=== PATIENT | male | born 1950 | race American Indian/Alaskan Native ===

== ENCOUNTER 2018-08-19 09:45 | Outpatient (CLI) | payer MEDICARE ==
--- NOTE | 2018-08-19 10:55 | XRay Report ---
CHEST XRAY, 2 VIEWS: History: Chest pain. Findings: There is mild cardiomegaly. Pulmonary vessels are within normal limits. The lungs are clear and fully expanded. No infiltrate, pleural effusion or pneumothorax. No displaced bony fracture. IMPRESSION: Mild cardiomegaly.
== END 2018-08-19 09:46 | disposition home or self-care (01) ==
LOC: CARD 09:45
PROVIDERS: ATTEND Internal Medicine
DX: I11.9 Hypertensive heart disease without heart failure (principal); E11.9 Type 2 diabetes mellitus without complications; Z86.73 Personal history of transient ischemic attack (TIA), and cerebral infarction without residual deficits
CPT/HCPCS: 71046; 93005; 93010

== ENCOUNTER 2018-12-09 21:39 | Emergency (ER) | payer MEDICARE ==
[2018-12-10 02:45] LABS: Bilirubin,Urine NEG (Negative); Blood,Urine LG (Negative); Color,Urine Yellow (Yellow); Mucus,Urine FEW /HPF; Urobilinogen,Urine < 2.0 mg/dL (<2.0)
[2018-12-10 02:46] LABS: RBC,Urine > 182.0 /HPF (0.0-6.0)
[2018-12-10 04:36] VITALS: BP 185/74
== END 2018-12-10 14:42 | disposition left against medical advice (07) ==
LOC: ED 21:39
DX: N42.89 Other specified disorders of prostate (principal); Z53.21 Procedure and treatment not carried out due to patient leaving prior to being seen by health care provider
CPT/HCPCS: 81001

== ENCOUNTER 2019-08-27 12:30 | Day surgery (SDC) | payer MEDICARE ==
--- NOTE | 2019-08-27 13:45 | Anesthesia Consultation ---
Anesthesia Consult and Med Hx Date of service: 08/27/19 - Airway Anesthetic Teeth Evaluation: Partials ROM Head & Neck: Adequate Mental/Hyoid Distance: Adequate Mallampati Class: Class II Intubation Access Assessment: Probably Good - Pulmonary Exam CTA: Yes - Cardiac Exam Cardiac Exam: RRR - Pre-Operative Health Status ASA Pre-Surgery Classification: ASA3 Proposed Anesthetic Plan: General - Pre-Anesthesia Comment Pre-Anesthesia Comments: Upper and lower partials. - Pulmonary Hx Smoking: No Hx Sleep Apnea: No (KIRAN PRE SCREEN HIGH RISK) - Cardiovascular System Hx Hypertension: No (Has taken meds for Htn in past) Hx Heart Attack/AMI: No (H/O atypical C.P. Several prior stress tests were neg. ) Hx Heart Murmur: No - Central Nervous System Hx Back Pain: Yes (LOWER) Hx Psychiatric Problems: No - Endocrine Hx Non-Insulin Dependent Diabetes: Yes (metformin) - Other Systems Hx Alcohol Use: Yes (RARE- WINE, WHISKEY) Hx Substance Use: No Hx Cancer: No - Additional Comments Anesthesia Medical History Comments: Hypercholesterolemia
[2019-08-27] MEDS ORDERED: ONDANSETRON 4 MG/2 ML INJ IV PRN (13:47)
[2019-08-27] MEDS ORDERED: HYDROcodone/ACETAMINOPHEN 5-325 MG TAB PO PRN (13:47)
[2019-08-27] MEDS ORDERED: HYDROmorphone 1 MG/1 ML INJ IV PRN (13:47)
--- NOTE | 2019-08-27 13:47 | Anesthesia Day of Surgery ---
Anesthesia Day of Surgery - Day of Surgery Patient Examined: Yes Patient H&P Reviewed: Yes Patient is NPO: Yes
[2019-08-27] MEDS ORDERED: FAMOTIDINE 20 MG TAB PO NR (14:00)
[2019-08-27] MEDS ORDERED: SODIUM CHLORIDE 0.9% 1000 ML 1,000 ML IV SCH (14:00)
[2019-08-27] MEDS ORDERED: MIDAZOLAM 2 MG/2 ML INJ IV NR (14:00)
[2019-08-27 14:45] VITALS: BP 166/74
--- NOTE | 2019-08-27 15:17 | Progress Note ---
Subjective Date of service: 08/27/19 Principal diagnosis: stricture Interval history: [facility] cancelled because no ride home pt was aware prior had to cancel i explained to him i asked for risk management offered to admit as well told no Objective - Constitutional Vitals: Vital Signs - 12hr 08/27/19 08/27/19 13:10 14:24 Temperature 98 F 98 F Pulse Rate 52 L 52 L Respiratory 18 18 Rate Blood Pressure 166/74 166/74 O2 Sat by Pulse 98 98 Oximetry Medications & Allergies - Medications Allergies/Adverse Reactions: Allergies No Known Allergies Allergy (Verified 12/09/18 22:14) Home Medications: Home Medications Medication Instructions Recorded Confirmed Last Taken Type Aleve 1 PO PRN 08/18/19 08/11/19 History Aspirin 81 mg PO DAILY 08/18/19 08/18/19 Unknown History Simvastatin 10 mg PO DAILY 08/18/19 08/18/19 Unknown History metFORMIN 1,000 mg PO BID 08/18/19 08/18/19 Unknown History Active Medications: Generic Name Dose Route Start Last Admin Trade Name [place] PRN Reason Stop Dose Admin Acetaminophen/Hydrocodone Bitart 2 each 08/27/19 13:47 [place] 5/325 PO ONCE PRN Pain, Moderate (4-6) Famotidine 20 mg 08/27/19 14:00 Pepcid PO 08/27/19 23:59 PREOP NR Hydromorphone HCl 0.25 mg 08/27/19 13:47 Dilaudid IV Q10MIN PRN Pain, Moderate (4-6) Sodium Chloride 1,000 mls @ 100 mls/hr 08/27/19 14:00 Nacl 0.9% 1000 Ml IV DIRECT HÉCTOR Midazolam HCl 2 mg 08/27/19 14:00 Versed IV 08/27/19 23:59 PREOP NR Ondansetron HCl 4 mg 08/27/19 13:47 Zofran IV ONCE PRN Nausea And Vomiting
== END 2019-08-27 12:31 | disposition home or self-care (01) ==
LOC: OR 12:30
PROVIDERS: ATTEND Urology
DX: N35.011 Post-traumatic bulbous urethral stricture (principal); E78.00 Pure hypercholesterolemia, unspecified; K21.9 Gastro-esophageal reflux disease without esophagitis; M19.90 Unspecified osteoarthritis, unspecified site; E11.9 Type 2 diabetes mellitus without complications; Z53.8 Procedure and treatment not carried out for other reasons; Z79.899 Other long term (current) drug therapy; Z79.82 Long term (current) use of aspirin; Z79.84 Long term (current) use of oral hypoglycemic drugs; Z98.41 Cataract extraction status, right eye; Z98.42 Cataract extraction status, left eye; Z72.89 Other problems related to lifestyle; Z98.890 Other specified postprocedural states; Z86.2 Personal history of diseases of the blood and blood-forming organs and certain disorders involving the immune mechanism
CPT/HCPCS: 82962; J7030

== ENCOUNTER 2019-10-01 14:30 | Day surgery (SDC) | payer MEDICARE ==
--- NOTE | 2019-10-01 14:53 | Anesthesia Day of Surgery ---
Anesthesia Day of Surgery - Day of Surgery Patient Examined: Yes Patient H&P Reviewed: Yes Patient is NPO: Yes
[2019-10-01] MEDS ORDERED: fentaNYL 100 MCG/2 ML INJ IV PRN (15:00)
[2019-10-01] MEDS ORDERED: ONDANSETRON 4 MG/2 ML INJ IV PRN (15:00)
[2019-10-01] MEDS ORDERED: LACTATED RINGERS 1,000 ML IV SCH (15:00)
[2019-10-01] MEDS ORDERED: ceFAZolin/Water 2 GM/20 ML 2 GM/20 ML SYRINGE IV NR (15:00)
[2019-10-01] MEDS ORDERED: propofoL 200 MG/20 ML VIAL IV ONE (15:03)
[2019-10-01] MEDS ORDERED: fentaNYL 100 MCG/2 ML INJ ONE (15:04)
[2019-10-01] MEDS ORDERED: LIDOCAINE MPF (2%) 20 MG/1 ML VIAL 5 ML ONE (15:04)
--- NOTE | 2019-10-01 15:18 | Post Operative Note ---
Date of procedure: 10/01/19 Pre-op diagnosis: stricture Findings: as above Procedure: cysto dviu Anesthesia: GETA Surgeon: RUPAL COOK Estimated blood loss: minimal Pathology: none Condition: stable Disposition: PACU
--- NOTE | 2019-10-01 15:20 | Discharge Summary ---
Short Stay Discharge Plan Activity: other (no staining ) Weight Bearing Status: Full Weight Bearing Diet: low fat, low cholesterol, low salt, diabetic Special Instructions: other (inc fluids ) Durable Medical Equipment Needed Upon Discharge: other (rosado care ) Follow up with: DOM ALLEN MD [Primary Care Provider] - 7 Days
[2019-10-01] MEDS ORDERED: WATER FOR IRRIG STERILE 2000 ML IR ONE (16:10)
--- NOTE | 2019-10-01 16:23 | Operative Report ---
PREOPERATIVE DIAGNOSES: History of previous stricture and narrowing and obstruction. POSTOPERATIVE DIAGNOSES: History of previous stricture and narrowing and obstruction. Previous TURP, slight narrowing at the membranous junction. PROCEDURE: Cystoscopy, DVIU. SURGEON: Dr. Odom. ANESTHESIA: General. FINDINGS: This is a gentleman who has had previous urological surgery. Complains of sprayed flow. He now presents for cystoscopy. DESCRIPTION OF PROCEDURE: The patient was brought to the operating room and laid on the operating table. Following induction of anesthesia, placed in lithotomy position, prepped and draped in usual sterile fashion. Cystourethroscopy showed a little narrowing at the membranous junction, which was minimally incised. The bladder neck was wide open. There was regrowth of prostate on the right lobe, but it did not appear to be obstructing. The prostatic urethra was wide open distal to the little apical tissue and the bladder was not trabeculated. The patient tolerated the procedure well. No biopsies were done. No retrogrades needed to be done. A 20 coude was placed. She was brought to recovery in stable condition. JOB# [id number] MICHELLE/CLEMENTE
--- NOTE | 2019-10-01 16:43 | Post Anesthesia Evaluation ---
- Post Anesthesia Evaluation Patient Participated: Yes Airway Patent: Yes Stable Respiratory Function: Yes Nausea/Vomiting: No Temp > 96.8F: Yes Pain Manageable: Yes Adequeate Hydration: Yes Anesthesia Complications: No Block Receding Appropriately: Not Applicable Patient on Ventilator: No
[2019-10-01] MEDS ORDERED: hydrALAZINE 20 MG/1 ML INJ ONE (16:49)
[2019-10-01] MEDS ORDERED: hydrALAZINE 20 MG/1 ML INJ IV ONE (16:51)
--- NOTE | 2019-10-01 17:15 | XRay Report ---
Single fluoroscopic image submitted Indication: Intraoperative localization Impression: A single image of the abdomen was submitted for documentation purposes with radiology in volvement. Imaging guidance performed for evaluation of a urethral stricture. No contrast was inject ed. Please refer to the operative note for complete details. Fluoroscopic time: 3 seconds Number of fluoroscopic images: 1 Signer Name: Amando Prakash MD Signed: 10/01/2019 5:11 PM Workstation Name: [id number]
[2019-10-01 17:18] VITALS: BP 157/98
[2019-10-01] MEDS ORDERED: HYDROcodone/ACETAMINOPHEN 5-325 MG TAB PO PRN (17:59)
== END 2019-10-01 18:30 | disposition home or self-care (01) ==
LOC: OR 14:30
PROVIDERS: ATTEND Urology
DX: N35.011 Post-traumatic bulbous urethral stricture (principal); E78.00 Pure hypercholesterolemia, unspecified; K21.9 Gastro-esophageal reflux disease without esophagitis; M19.90 Unspecified osteoarthritis, unspecified site; E11.9 Type 2 diabetes mellitus without complications; Z72.89 Other problems related to lifestyle; Z98.890 Other specified postprocedural states; Z79.899 Other long term (current) drug therapy; Z79.84 Long term (current) use of oral hypoglycemic drugs; Z79.82 Long term (current) use of aspirin; Z98.41 Cataract extraction status, right eye; Z98.42 Cataract extraction status, left eye
CPT/HCPCS: 52276; 74018; 82962; A4217; J0360; J0690; J2704; J3010; J7120

== ENCOUNTER 2021-04-12 07:08 | Day surgery (SDC) | payer MEDICARE ==
[2021-04-12] MEDS ORDERED: SODIUM CHLORIDE 0.9% 500 ML 500 ML IV SCH (08:00)
[2021-04-12 08:12] LABS: Basophils % (Auto) 0.7 % (0.0-1.8); Eosinophils # (Auto) 0.1 K/mm3 (0.0-0.4); Hematocrit 39.9 % (35.5-45.6); Hemoglobin 13.5 gm/dl (11.8-15.2); Lymphocytes # (Auto) 1.3 K/mm3 (1.2-5.4); Lymphocytes % (Auto) 42.8 % (13.4-35.0); Mean Corpuscular HGB Conc 34 % (32-34); Mean Corpuscular Volume 80 fl (84-94); Monocytes # (Auto) 0.3 K/mm3 (0.0-0.8); Monocytes % (Auto) 10.8 % (0.0-7.3); Platelet Count 152 K/mm3 (140-440); Red Cell Distribution Width 15.1 % (13.2-15.2)
[2021-04-12 08:24] LABS: BUN/Creatinine Ratio 15; Blood Urea Nitrogen 15 mg/dL (9-20); Calcium 9.3 mg/dL (8.4-10.2); Hemolysis Index 8
[2021-04-12 08:25] VITALS: BP 147/82
[2021-04-12] MEDS ORDERED: MIDAZOLAM 2 MG/2 ML INJ ONE (08:32)
[2021-04-12] MEDS ORDERED: fentaNYL 100 MCG/2 ML INJ ONE (08:33)
[2021-04-12] MEDS ORDERED: LIDOCAINE (2%) 20 MG/1 ML VIAL 20 ML MDV INFILTRATI ONE (08:34)
[2021-04-12] MEDS ORDERED: HEPARIN/NS 5000 UNIT/500ML 1,000 ML IR ONE (08:34)
[2021-04-12] MEDS ORDERED: HEPARIN 10,000 UNITS/10 ML VIAL ONE (08:34)
[2021-04-12] MEDS ORDERED: NITROGLYCERIN SYRINGE 3 ML ONE (08:35)
[2021-04-12 08:51] LABS: INR 1.14 (0.87-1.13)
[2021-04-12] MEDS ORDERED: ASPIRIN 81 MG TAB CHEW PO SCH (10:00)
== END 2021-04-12 08:50 | disposition home or self-care (01) ==
LOC: CATHLABREC 07:08
PROVIDERS: ATTEND Internal Medicine
DX: R94.39 Abnormal result of other cardiovascular function study (principal); Z53.8 Procedure and treatment not carried out for other reasons; I10 Essential (primary) hypertension; E11.9 Type 2 diabetes mellitus without complications; E78.00 Pure hypercholesterolemia, unspecified; K21.9 Gastro-esophageal reflux disease without esophagitis; N40.0 Benign prostatic hyperplasia without lower urinary tract symptoms; M19.90 Unspecified osteoarthritis, unspecified site; Z86.711 Personal history of pulmonary embolism; Z79.82 Long term (current) use of aspirin; Z79.84 Long term (current) use of oral hypoglycemic drugs; Z79.899 Other long term (current) drug therapy; Z98.890 Other specified postprocedural states
CPT/HCPCS: 36415; 80048; 85025; 85610; 85730; 93005; J1644; J2250; J3010; J7040

== ENCOUNTER 2021-04-21 06:43 | Day surgery (SDC) | payer MEDICARE ==
[2021-04-21] MEDS ORDERED: SODIUM CHLORIDE 0.9% 500 ML 500 ML IV SCH (09:00)
[2021-04-21 09:24] LABS: Basophils % (Auto) 1.1 % (0.0-1.8); Eosinophils # (Auto) 0.1 K/mm3 (0.0-0.4); Eosinophils % (Auto) 2.6 % (0.0-4.3); Hematocrit 41.8 % (35.5-45.6); Hemoglobin 14.1 gm/dl (11.8-15.2); Lymphocytes # (Auto) 1.6 K/mm3 (1.2-5.4); Lymphocytes % (Auto) 42.4 % (13.4-35.0); Mean Corpuscular HGB Conc 34 % (32-34); Mean Corpuscular Volume 80 fl (84-94); Monocytes # (Auto) 0.3 K/mm3 (0.0-0.8); Monocytes % (Auto) 7.9 % (0.0-7.3); Platelet Count 148 K/mm3 (140-440); Red Blood Count 5.21 M/mm3 (3.65-5.03); Red Cell Distribution Width 14.9 % (13.2-15.2)
[2021-04-21 09:37] LABS: BUN/Creatinine Ratio 11; Blood Urea Nitrogen 10 mg/dL (9-20); Calcium 9.3 mg/dL (8.4-10.2); Hemolysis Index 210
[2021-04-21 09:38] LABS: INR 0.95 (0.87-1.13)
[2021-04-21] MEDS ORDERED: MIDAZOLAM 2 MG/2 ML INJ ONE (09:46)
[2021-04-21] MEDS ORDERED: fentaNYL 100 MCG/2 ML INJ ONE (09:46)
[2021-04-21] MEDS ORDERED: HEPARIN/NS 5000 UNIT/500ML 1,000 ML IR ONE (09:50)
[2021-04-21] MEDS ORDERED: VERAPAMIL 5 MG/2 ML INJ ONE (09:50)
[2021-04-21] MEDS ORDERED: HEPARIN 10,000 UNITS/10 ML VIAL ONE (09:50)
[2021-04-21] MEDS ORDERED: LIDOCAINE (2%) 20 MG/1 ML VIAL 20 ML MDV INFILTRATI ONE (09:51)
[2021-04-21] MEDS ORDERED: NITROGLYCERIN SYRINGE 3 ML ONE (09:51)
[2021-04-21] MEDS ORDERED: ASPIRIN EC 325 MG TAB PO SCH (10:00)
[2021-04-21] MEDS ORDERED: ATROPINE 0.1% (1 MG/10 ML) CARDIAC SYRINGE ONE (10:50)
[2021-04-21] MEDS ORDERED: HYDROcodone/ACETAMINOPHEN 5-325 MG TAB PO PRN (11:05)
[2021-04-21] MEDS ORDERED: traMADol 50 MG TAB PO PRN (11:05)
--- NOTE | 2021-04-21 11:08 | Short Stay Summary ---
Short Stay Documentation Date of service: 04/21/21 - History H&P: obtained from office - Allergies and Medications Current Medications: Allergies No Known Allergies Allergy (Verified 12/09/18 22:14) Home Medications Medication Instructions Recorded Confirmed Last Taken Type Aleve 1 tab PO PRN PRN 08/18/19 04/21/21 09/27/19 History Aspirin 81 mg PO DAILY 08/18/19 04/21/21 04/18/21 History 81 mg Simvastatin 10 mg PO QHS 08/18/19 04/21/21 04/20/21 History 10 mg metFORMIN 1,000 mg PO BID 08/18/19 09/24/19 04/18/21 History 500 mg Furosemide [Lasix TAB] 20 mg PO DAILY 04/21/21 04/21/21 Unknown History carvediloL [Coreg] 12.5 mg PO BID 04/21/21 04/21/21 04/20/21 History 2 tabs lisinopriL [Lisinopril] 20 mg PO BID 04/21/21 04/21/21 04/20/21 History 20 mg Active Medications Aspirin (Aspirin Ec 325 Mg Tab) 325 mg PO ONCE@1000 HÉCTOR Stop: 04/21/21 17:00 Sodium Chloride (Nacl 0.9% 500 Ml) 500 mls @ 50 mls/hr IV DIRECT HÉCTOR Stop: 04/21/21 18:59 - Brief post op/procedure progress note Date of procedure: 04/21/21 Pre-op diagnosis: abnl stress Post-op diagnosis: other Procedure: see report Anesthesia: local Estimated blood loss: minimal Pathology: none - Disposition Condition at discharge: Good Disposition: 01 HOME / SELF CARE / HOMELESS - Discharge Diagnoses (1) Abnormal stress test Status: Resolved (2) Hypertension Status: Chronic Qualifiers: Hypertension type: primary hypertension Qualified Code(s): I10 - Essential (primary) hypertension (3) Diabetes mellitus Status: Chronic Qualifiers: Diabetes mellitus type: type 2 Diabetes mellitus complication status: without complication (4) DVT (deep venous thrombosis) Status: Acute Qualifiers: DVT location: lower extremity Chronicity: acute Laterality: left Short Stay Discharge Plan Activity: advance as tolerated Diet: low cholesterol, low salt, diabetic, low protein Wound: keep clean and dry Special Instructions: hold Metformin (for 48 hours hold) Follow up with: DOM ALLEN MD [Primary Care Provider] - 7 Days
--- NOTE | 2021-04-21 13:20 | Cardiac Catherization Report ---
DATE OF SERVICE: 04/21/2021 PROCEDURE: Left heart cath being done by Dr. Wick. ORDERING PHYSICIAN: Dr. Junaid Mao CLINICAL INFORMATION: A 70-year-old -[place] gentleman with history of DVT, on Eliquis, had abnormal stress test with inferior defect, is here for a left heart cath. Left heart catheterization performed via the right radial artery. Normal Enzo's test, sterile technique, local anesthesia. A 6-Namibian radial sheath inserted. Procedure was done with moderate sedation, started at 10:36, finished 10:51, which is 15 minutes of moderate sedation. DESCRIPTION OF PROCEDURE: Procedure was done via the right radial artery. So following findings: Left system engaged with JL3.5 catheter. Left main is large and patent, bifurcates to large LAD, is patent. Diagonal 1 medium caliber vessel. Circumflex large caliber, was patent. OM1, OM2 medium caliber, patent. RCA engaged, JR4 is a large, dominant vessel, patent. PDA and PLV are small to medium caliber, was patent. LV gram done in CYRIL and ACEVEDO, shows normal LV function, LVEDP 17 mmHg, LV is 170. Aortic is 170/90. No gradient across the aortic valve on pullback. 5-Namibian catheters, all taken over guidewire. A 6-Namibian radial sheath was discontinued. Radial band applied. No hematoma, no bleeding. SUMMARY: Patent coronaries, left main patent, LAD patent, circumflex patent; OM1, OM2 patent. RCA large, dominant, patent. Normal LV function, EF 55-60%. Continue risk factor modification. Restart home medications. Discussed this with patient in detail. TID: [id number] RECEIPT: [id number] ABBY/URI/JOSÉ
[2021-04-21 15:10] VITALS: BP 165/86
--- NOTE | 2021-04-22 08:46 | Electrocardiograph Report ---
[facility] Test Date: 2021-04-21 Test Time: 11:13:41 Pat Name: DENNISE IRAHETA Department: Room: Gender: M Laserist: RADHA : 1950 Requested By: MARCELLO WICK Order Number: [id number] Reading MD: Marcello Wick Measurements Intervals [place] Rate: 38 P: 42 NM: 239 QRS: -55 QRSD: 93 T: 159 QT: 481 QTc: 383 Interpretive Statements Sinus bradycardia Prolonged NM interval Inferior infarct, old Lateral wall also involved No previous ECG available for comparison Electronically Signed On 04-22-2021 8:46:17 EDT by Marcello Wick
== END 2021-04-21 06:44 | disposition home or self-care (01) ==
LOC: CATHLABREC 06:43
PROVIDERS: ATTEND Internal Medicine
DX: R94.39 Abnormal result of other cardiovascular function study (principal); I10 Essential (primary) hypertension; E11.9 Type 2 diabetes mellitus without complications; E78.00 Pure hypercholesterolemia, unspecified; K21.9 Gastro-esophageal reflux disease without esophagitis; M19.90 Unspecified osteoarthritis, unspecified site; N40.0 Benign prostatic hyperplasia without lower urinary tract symptoms; Z79.82 Long term (current) use of aspirin; Z79.84 Long term (current) use of oral hypoglycemic drugs; Z79.899 Other long term (current) drug therapy; Z98.890 Other specified postprocedural states; Z72.89 Other problems related to lifestyle; Z86.711 Personal history of pulmonary embolism
CPT/HCPCS: 36415; 80048; 85025; 85610; 85730; 93005; 93458; 99156; C1894; J0461; J1644; J2250; J3010; J7040; Q9967